=== PATIENT | female | born 1970 | race Caucasian/White ===

== ENCOUNTER 2021-05-10 16:38 | Inpatient (IN) ==
[2021-05-10] MEDS ORDERED: FUROSEMIDE 100 MG/10 ML VIAL IV STA (17:30)
[2021-05-10] MEDS ORDERED: GLUCAGON 1 MG VIAL IM PRN (18:07)
[2021-05-10] MEDS ORDERED: DEXTROSE 50% 25 GM/50 ML VIAL IV PRN (18:07)
[2021-05-10] MEDS ORDERED: ONDANSETRON 4 MG/2 ML VIAL IV PRN (18:07)
[2021-05-10] MEDS ORDERED: cefTRIAXone 2,000 MG in SODIUM CHLORIDE 0.9% 100 ML IV SCH (18:30)
[2021-05-10] MEDS ORDERED: cefTRIAXone 1,000 MG VIAL ONE (19:21)
[2021-05-10 19:24] LABS: Hematocrit 35.1 VOL% (35.7-47.0); Hemoglobin 10.5 GM/DL (12.0-16.0); Immature Granulocytes % 1.9 %; Immature Granulocytes Absolute 0.04 #; Lymphocytes # 0.1 10*3/uL (1.4-4.0); Lymphocytes % 2.8 % (21.3-54.2); Mean Corpuscular HGB Conc 29.9 GM/DL (32-36); Mean Corpuscular Volume 102.3 FL (87-102); Mean Platelet Volume 12.2 FL (9.6-12.0); Monocytes % 4.3 % (1.7-12.7); Red Blood Count 3.43 MC/CUMM (3.8-5.5); Red Cell Distribution Width 21.5 % (9.3-17.3); White Blood Count 2.1 T/CUMM (4-12)
[2021-05-10] MEDS: methylPREDNISolone SOD SUC 40 MG/1 ML VIAL IV SCH (19:29)
[2021-05-10 19:43] LABS: Platelet Count 30 T/CUMM (130-400)
[2021-05-10] MEDS: ALBUTEROL/IPRATROPIUM 3 ML NEB RESP TX SCH ×2 (19:44→23:58)
[2021-05-10 19:47] LABS: Albumin 2.5 G/DL (3.4-5.0); Bilirubin,Total 0.9 MG/DL (0.20-1.00); Calcium 9.1 MG/DL (8.5-10.1); Osmolality,Calculated 293.4 MOS/KG (273-304); Potassium 3.8 MMOL/L (3.5-5.1); Total Protein 5.7 G/DL (6.4-8.2)
[2021-05-10] MEDS ORDERED: APIXABAN 5 MG TABLET PO SCH (21:00)
[2021-05-10 21:01] LABS: Anisocytosis 2+; Band Neutrophils 5 % (0-10); Hypochromasia 1+; Lymphocytes 3 % (20-55); Segmented Neutrophils 89 % (50-85); Total Cells Counted 100
[2021-05-10 21:02] LABS: Ovalocytes 2+; Platelet Estimate Adequate; Tear Drop Cells 1+
[2021-05-10] MEDS: DILTIAZEM INJ 100 MG in SODIUM CHLORIDE 0.9% 100 ML IV SCH (21:54)
[2021-05-10] MEDS ORDERED: SODIUM CHLORIDE 0.9% 250 ML IV ONE (23:31)
[2021-05-11] MEDS: METOPROLOL TARTRATE 25 MG TABLET PO SCH ×3 (00:26→21:08)
[2021-05-11] MEDS: PIPERACILLIN/TAZOBACTAM 3,375 MG in SODIUM CHLORIDE 0.9% 100 ML IV SCH ×3 (00:47→23:18)
[2021-05-11] MEDS ORDERED: VANCOMYCIN INJ 1,000 MG in SODIUM CHLORIDE 0.9% 250 ML IV ONE (00:58)
[2021-05-11] MEDS ORDERED: ACETAMINOPHEN 650 MG SUPP RECTAL ONE (00:59)
[2021-05-11 01:04] LABS: ABG Base Excess 3.5 MMOL/L (-2.5-2.5); ABG HCO3 27.6 MMOL/L (20-26); ABG Oxygen Saturation 96.1 % (95-100); ABG PCO2 36.2 MM HG (35-48); ABG PH 7.481 (7.35-7.45); ABG PO2 78.2 MM HG (80-95); ABG TCO2 24.6 MMOL/L (23-27)
[2021-05-11] MEDS ORDERED: VANCOMYCIN INJ 500 MG in SODIUM CHLORIDE 0.9% 100 ML IV PRN (01:07)
[2021-05-11] MEDS ORDERED: KETOROLAC 30 MG/1 ML VIAL IV ONE (01:12)
[2021-05-11 01:31] LABS: Hematocrit 31.7 VOL% (35.7-47.0); Hemoglobin 9.6 GM/DL (12.0-16.0); Immature Granulocytes % 0.6 %; Immature Granulocytes Absolute 0.01 #; Lymphocytes # 0.1 10*3/uL (1.4-4.0); Lymphocytes % 3.2 % (21.3-54.2); Mean Corpuscular HGB Conc 30.3 GM/DL (32-36); Mean Corpuscular Volume 100.3 FL (87-102); Mean Platelet Volume 12.8 FL (9.6-12.0); Monocytes % 5.8 % (1.7-12.7); Neutrophils % 90.4 % (38.7-73.9); Red Blood Count 3.16 MC/CUMM (3.8-5.5); Red Cell Distribution Width 21.7 % (9.3-17.3); White Blood Count 1.6 T/CUMM (4-12)
[2021-05-11 01:34] LABS: Platelet Count 26 T/CUMM (130-400)
[2021-05-11 01:40] LABS: Albumin 2.2 G/DL (3.4-5.0); Bilirubin,Total 0.8 MG/DL (0.20-1.00); Calcium 9.1 MG/DL (8.5-10.1); Osmolality,Calculated 289.8 MOS/KG (273-304); Potassium 3.8 MMOL/L (3.5-5.1); Total Protein 5.4 G/DL (6.4-8.2)
[2021-05-11] MEDS ORDERED: ACETAMINOPHEN 650 MG SUPP RECTAL PRN ×2 (01:52→03:11)
[2021-05-11] MEDS ORDERED: LACTULOSE 20 GM/30 ML UDCUP PO ONE ×2 (01:52→02:59)
[2021-05-11 01:56] LABS: Ammonia 78 UMOL/L (11-32)
[2021-05-11 02:13] LABS: Band Neutrophils 1 % (0-10); Eosinophils 1 % (0-10); Lymphocytes 2 % (20-55); Platelet Estimate Decreased; Segmented Neutrophils 88 % (50-85); Total Cells Counted 100
[2021-05-11 02:14] LABS: Acanthocytes Few
[2021-05-11] MEDS: ALBUTEROL/IPRATROPIUM 3 ML NEB RESP TX SCH ×5 (03:31→19:35)
[2021-05-11 04:26] LABS: Basophils % 0.4 % (0.0-0.8); Hematocrit 32.3 VOL% (35.7-47.0); Hemoglobin 10.1 GM/DL (12.0-16.0); Immature Granulocytes % 8.9 %; Lymphocytes # 0.1 10*3/uL (1.4-4.0); Lymphocytes % 3.6 % (21.3-54.2); Mean Corpuscular HGB Conc 31.3 GM/DL (32-36); Mean Corpuscular Volume 100.3 FL (87-102); Neutrophils % 79.1 % (38.7-73.9); Red Blood Count 3.22 MC/CUMM (3.8-5.5); Red Cell Distribution Width 21.6 % (9.3-17.3); White Blood Count 2.2 T/CUMM (4-12)
[2021-05-11 04:29] LABS: Platelet Count 23 T/CUMM (130-400)
[2021-05-11 04:50] LABS: Band Neutrophils 10 % (0-10); Hypochromasia 1+; Lymphocytes 3 % (20-55); Segmented Neutrophils 81 % (50-85); Total Cells Counted 100
[2021-05-11 04:51] LABS: Anisocytosis 1+; Microcytosis 1+; Ovalocytes Slight; Platelet Estimate Decreased
[2021-05-11 04:58] LABS: Calcium 8.9 MG/DL (8.5-10.1); Osmolality,Calculated 288.8 MOS/KG (273-304); Potassium 4.1 MMOL/L (3.5-5.1)
[2021-05-11] MEDS: DILTIAZEM INJ 100 MG in SODIUM CHLORIDE 0.9% 100 ML IV SCH (07:19)
[2021-05-11] MEDS: methylPREDNISolone SOD SUC 40 MG/1 ML VIAL IV SCH ×3 (07:19→17:47)
[2021-05-11 07:45] LABS: Hematocrit 31.8 VOL% (35.7-47.0); Hemoglobin 9.6 GM/DL (12.0-16.0); Immature Granulocytes Absolute 0.17 #; Lymphocytes # 0.1 10*3/uL (1.4-4.0); Lymphocytes % 5.7 % (21.3-54.2); Mean Corpuscular HGB Conc 30.2 GM/DL (32-36); Mean Corpuscular Volume 100.6 FL (87-102); Monocytes % 4.5 % (1.7-12.7); Neutrophils % 82.8 % (38.7-73.9); Red Blood Count 3.16 MC/CUMM (3.8-5.5); Red Cell Distribution Width 21.6 % (9.3-17.3); White Blood Count 2.4 T/CUMM (4-12)
[2021-05-11 07:57] LABS: Platelet Count 26 T/CUMM (130-400)
[2021-05-11 08:05] LABS: Band Neutrophils 3 % (0-10); Hypochromasia 1+; Lymphocytes 9 % (20-55); Microcytosis 1+; Ovalocytes Slight; Platelet Estimate Decreased; Segmented Neutrophils 85 % (50-85); Total Cells Counted 100
[2021-05-11 08:06] LABS: Bilirubin,Direct 0.34 MG/DL (0.0-0.20); Bilirubin,Indirect 0.5 MG/DL (0.0-1.0); Bilirubin,Total 0.8 MG/DL (0.20-1.00); Ferritin 953.5 ng/mL (8-252); Total Protein 5.3 G/DL (6.4-8.2)
[2021-05-11 08:52] LABS: Folate 2.48 NG/ML (5.38-24.0); Hepatitis B Core IgM Quant 0.09 Index; Hepatitis B Surface Ag Quant < 0.10 Index; Hepatitis B Surface Ag Result Non-Reactive (NonReactive); Hepatitis C Virus Ab Quant 0.05 Index; Hepatitis C Virus Ab Result Non-Reactive (NonReactive); Vitamin B12 429 PG/ML (211-911)
[2021-05-11 08:56] LABS: Sedimentation Rate-Westergren 22 MM/HR (0-30)
[2021-05-11] MEDS ORDERED: AZITHROMYCIN 250 MG TABLET PO SCH (09:00)
[2021-05-11] MEDS: ASPIRIN EC 81 MG TABLET PO SCH (09:22)
[2021-05-11] MEDS: PANTOPRAZOLE 40 MG TABLET PO SCH (09:23)
[2021-05-11 10:01] LABS: Hemoglobin A1 (Alkaline) 97.6 % (96.5-98.5); Hemoglobin A2 (Alkaline) 2.4 % (1.5-3.5)
[2021-05-11 11:02] LABS: ABG Base Excess 3.2 MMOL/L (-2.5-2.5); ABG HCO3 27.2 MMOL/L (20-26); ABG Oxygen Saturation 95.5 % (95-100); ABG PCO2 44.6 MM HG (35-48); ABG TCO2 25.9 MMOL/L (23-27)
[2021-05-11] MEDS: FOLIC ACID 1 MG TABLET PO SCH ×2 (11:11→21:08)
[2021-05-11 13:48] LABS: Barbiturates Screen,Urine Negative (Negative); Benzodiazepines Screen,Urine Negative (Negative); Cannabinoid Screen,Urine Negative (Negative); Opiate Screen,Urine Positive (Negative); Phencyclidine Screen,Urine Negative (Negative)
[2021-05-11] MEDS: LACTULOSE 20 GM/30 ML UDCUP PO SCH ×2 (15:01→21:08)
[2021-05-11 19:15] LABS: Hemoglobin 9.4 GM/DL (12.0-16.0); Immature Granulocytes % 8.9 %; Immature Granulocytes Absolute 0.17 #; Lymphocytes # 0.2 10*3/uL (1.4-4.0); Lymphocytes % 8.9 % (21.3-54.2); Mean Corpuscular HGB Conc 30.3 GM/DL (32-36); Mean Corpuscular Volume 98.4 FL (87-102); Mean Platelet Volume 12.4 FL (9.6-12.0); Monocytes % 4.7 % (1.7-12.7); Neutrophils % 77.5 % (38.7-73.9); Red Blood Count 3.15 MC/CUMM (3.8-5.5); Red Cell Distribution Width 21.5 % (9.3-17.3); White Blood Count 1.9 T/CUMM (4-12)
[2021-05-11 19:20] LABS: Platelet Count 28 T/CUMM (130-400)
[2021-05-11 19:47] LABS: Band Neutrophils 5 % (0-10); Lymphocytes 19 % (20-55); Macrocytosis Slight; Platelet Estimate Decreased; Segmented Neutrophils 72 % (50-85); Total Cells Counted 100
[2021-05-11 19:48] LABS: Schistocytes Slight
[2021-05-11] MEDS ORDERED: cefTRIAXone 2,000 MG in SODIUM CHLORIDE 0.9% 100 ML IV SCH (20:00)
[2021-05-12] MEDS: ALBUTEROL/IPRATROPIUM 3 ML NEB RESP TX SCH ×7 (00:55→23:22)
[2021-05-12] MEDS ORDERED: SODIUM CHLORIDE 0.9% 250 ML IV ONE (01:19)
[2021-05-12 02:06] LABS: Immature Granulocytes % 11.6 %; Immature Granulocytes Absolute 0.26 #; Lymphocytes # 0.2 10*3/uL (1.4-4.0); Lymphocytes % 9.4 % (21.3-54.2); Mean Corpuscular HGB Conc 31.3 GM/DL (32-36); Mean Corpuscular Volume 98.2 FL (87-102); Monocytes % 4.9 % (1.7-12.7); Neutrophils % 74.1 % (38.7-73.9); Red Blood Count 3.26 MC/CUMM (3.8-5.5); Red Cell Distribution Width 21.4 % (9.3-17.3); White Blood Count 2.2 T/CUMM (4-12)
[2021-05-12 02:14] LABS: Platelet Count 33 T/CUMM (130-400)
[2021-05-12] MEDS: methylPREDNISolone SOD SUC 40 MG/1 ML VIAL IV SCH ×3 (02:20→18:17)
[2021-05-12 02:21] LABS: Calcium 8.9 MG/DL (8.5-10.1)
[2021-05-12 02:43] LABS: Band Neutrophils 4 % (0-10); Lymphocytes 7 % (20-55); Platelet Estimate Decreased; Segmented Neutrophils 83 % (50-85)
[2021-05-12 02:44] LABS: Hypochromasia Slight; Total Cells Counted 100
[2021-05-12 09:45] LABS: HIV Antigen/Antibody Result Nonreactive (Nonreactive)
[2021-05-12 10:08] LABS: Total Protein 5.7 G/DL (6.4-8.2)
[2021-05-12] MEDS: METOPROLOL TARTRATE 25 MG TABLET PO SCH ×2 (11:15→20:35)
[2021-05-12] MEDS: ASPIRIN EC 81 MG TABLET PO SCH (11:15)
[2021-05-12] MEDS: LACTULOSE 20 GM/30 ML UDCUP PO SCH ×2 (11:15→20:36)
[2021-05-12] MEDS: PANTOPRAZOLE 40 MG TABLET PO SCH (11:15)
[2021-05-12] MEDS: FOLIC ACID 1 MG TABLET PO SCH ×2 (11:15→20:35)
[2021-05-12] MEDS: MIDODRINE 5 MG TABLET PO SCH ×2 (18:17→20:35)
[2021-05-12] MEDS: PIPERACILLIN/TAZOBACTAM 3,375 MG in SODIUM CHLORIDE 0.9% 100 ML IV SCH (18:17)
[2021-05-12] MEDS ORDERED: cefTRIAXone 1,000 MG VIAL IM ONE (23:57)
[2021-05-12] MEDS ORDERED: CLINDAMYCIN 600 MG/4 ML VIAL IM ONE (23:57)
[2021-05-13] MEDS ORDERED: methylPREDNISolone SOD SUC 40 MG/1 ML VIAL IM ONE (00:16)
[2021-05-13] MEDS: methylPREDNISolone SOD SUC 40 MG/1 ML VIAL IV SCH ×2 (01:34→10:17)
[2021-05-13] MEDS: ALBUTEROL/IPRATROPIUM 3 ML NEB RESP TX SCH ×5 (03:02→20:20)
[2021-05-13] MEDS: PIPERACILLIN/TAZOBACTAM 3,375 MG in SODIUM CHLORIDE 0.9% 100 ML IV SCH (04:06)
[2021-05-13 06:56] LABS: Hemoglobin 9.7 GM/DL (12.0-16.0); Immature Granulocytes % 0.5 %; Immature Granulocytes Absolute 0.01 #; Lymphocytes # 0.2 10*3/uL (1.4-4.0); Lymphocytes % 10.3 % (21.3-54.2); Mean Corpuscular HGB Conc 31.3 GM/DL (32-36); Mean Corpuscular Volume 97.5 FL (87-102); Monocytes % 4.4 % (1.7-12.7); Neutrophils % 84.8 % (38.7-73.9); Red Blood Count 3.18 MC/CUMM (3.8-5.5); Red Cell Distribution Width 21.2 % (9.3-17.3)
[2021-05-13 07:09] LABS: Calcium 10.2 MG/DL (8.5-10.1); Osmolality,Calculated 298.5 MOS/KG (273-304); Potassium 4.6 MMOL/L (3.5-5.1)
[2021-05-13 07:18] LABS: Total Protein (Chem) 5.7 G/DL (6.4-8.3)
[2021-05-13 07:31] LABS: Platelet Count 33 T/CUMM (130-400)
[2021-05-13 07:46] LABS: Anisocytosis 1+; Band Neutrophils 6 % (0-10); Burr Cells 1+; Lymphocytes 9 % (20-55); Macrocytosis 1+; Nucleated Red Blood Cells 2 (0-5); Ovalocytes Few; Platelet Estimate Decreased; Segmented Neutrophils 82 % (50-85); Tear Drop Cells Few; Total Cells Counted 100
[2021-05-13 07:47] LABS: Target Cells Few
[2021-05-13] MEDS: METOPROLOL TARTRATE 25 MG TABLET PO SCH ×2 (08:42→20:23)
[2021-05-13 09:14] LABS: Immuno Free Light Chain Kappa 9.36 MG/DL (0.33-1.94); Immuno Free Light Chain Lambda 10.57 MG/DL (0.57-2.63); Immuno Free Light Chain Ratio 0.89 MG/DL (0.26-1.65)
[2021-05-13 09:23] LABS: Albumin (SPE) 3.2 G/DL (3.2-5.3); Albumin (SPE) Rel % 56.5 %; Alpha 1 (SPE) 0.3 G/DL (0.1-0.4); Alpha 1 (SPE) Rel % 5.4 %; Alpha 2 (SPE) 0.5 G/DL (0.4-1.0); Alpha 2 (SPE) Rel % 8.3 %; Beta (SPE) 0.3 G/DL (0.5-1.1); Gamma (SPE) 1.4 G/DL (0.7-1.7); Gamma (SPE) Rel % 23.8 %
[2021-05-13] MEDS: MIDODRINE 5 MG TABLET PO SCH ×3 (10:16→20:23)
[2021-05-13] MEDS: ASPIRIN EC 81 MG TABLET PO SCH (10:16)
[2021-05-13] MEDS: PANTOPRAZOLE 40 MG TABLET PO SCH (10:16)
[2021-05-13] MEDS: LACTULOSE 20 GM/30 ML UDCUP PO SCH ×2 (10:16→20:23)
[2021-05-13] MEDS: FOLIC ACID 1 MG TABLET PO SCH ×2 (10:16→20:23)
[2021-05-13 13:30] LABS: ABG Base Excess 1.3 MMOL/L (-2.5-2.5); ABG HCO3 24.9 MMOL/L (20-26); ABG Oxygen Saturation 54.1 % (95-100); ABG PCO2 55.5 MM HG (35-48); ABG PH 7.315 (7.35-7.45); ABG TCO2 26.4 MMOL/L (23-27)
[2021-05-13 13:36] LABS: ABG PO2 36.9 MM HG (80-95)
[2021-05-13] MEDS: cefTRIAXone 1,000 MG VIAL IM SCH (14:17)
[2021-05-13] MEDS: predniSONE 20 MG TABLET PO SCH (14:17)
[2021-05-13 15:46] LABS: ABG HCO3 25.2 MMOL/L (20-26); ABG Oxygen Saturation 91.5 % (95-100); ABG PCO2 41.8 MM HG (35-48); ABG PH 7.399 (7.35-7.45); ABG PO2 67.4 MM HG (80-95); ABG TCO2 23.8 MMOL/L (23-27)
[2021-05-14] MEDS: ALBUTEROL/IPRATROPIUM 3 ML NEB RESP TX SCH ×7 (00:30→23:15)
[2021-05-14] MEDS: METOPROLOL TARTRATE 25 MG TABLET PO SCH ×2 (08:47→20:36)
[2021-05-14] MEDS: MIDODRINE 5 MG TABLET PO SCH ×3 (08:47→20:36)
[2021-05-14] MEDS: FOLIC ACID 1 MG TABLET PO SCH ×2 (08:47→20:36)
[2021-05-14] MEDS: LACTULOSE 20 GM/30 ML UDCUP PO SCH ×3 (08:47→20:54)
[2021-05-14 09:16] LABS: ABG Base Excess 0.6 MMOL/L (-2.5-2.5); ABG Oxygen Saturation 96.8 % (95-100); ABG PCO2 41.1 MM HG (35-48); ABG PH 7.399 (7.35-7.45); ABG TCO2 23.3 MMOL/L (23-27)
[2021-05-14 11:45] LABS: Calcium 9.9 MG/DL (8.5-10.1); Osmolality,Calculated 298.1 MOS/KG (273-304); Potassium 5.4 MMOL/L (3.5-5.1)
[2021-05-14 12:43] LABS: Hematocrit 30.9 VOL% (35.7-47.0); Hemoglobin 9.7 GM/DL (12.0-16.0); Immature Granulocytes % 0.4 %; Immature Granulocytes Absolute 0.01 #; Lymphocytes # 0.4 10*3/uL (1.4-4.0); Lymphocytes % 14.4 % (21.3-54.2); Mean Corpuscular HGB Conc 31.4 GM/DL (32-36); Mean Corpuscular Volume 94.8 FL (87-102); Monocytes % 4.4 % (1.7-12.7); Neutrophils % 80.8 % (38.7-73.9); Red Blood Count 3.26 MC/CUMM (3.8-5.5); Red Cell Distribution Width 21.1 % (9.3-17.3); White Blood Count 2.7 T/CUMM (4-12)
[2021-05-14 12:45] LABS: Platelet Count 34 T/CUMM (130-400)
[2021-05-14] MEDS: PANTOPRAZOLE 40 MG TABLET PO SCH (14:04)
[2021-05-14] MEDS: ASPIRIN EC 81 MG TABLET PO SCH (14:04)
[2021-05-14] MEDS: predniSONE 20 MG TABLET PO SCH (14:31)
[2021-05-14] MEDS: cefTRIAXone 1,000 MG VIAL IM SCH (14:44)
[2021-05-15] MEDS: ACETAMINOPHEN 325 MG TABLET PO PRN (01:15)
[2021-05-15] MEDS: ALBUTEROL/IPRATROPIUM 3 ML NEB RESP TX SCH ×6 (04:20→23:58)
[2021-05-15 04:32] LABS: Hematocrit 30.8 VOL% (35.7-47.0); Hemoglobin 9.7 GM/DL (12.0-16.0); Immature Granulocytes Absolute 0.04 #; Lymphocytes # 0.4 10*3/uL (1.4-4.0); Lymphocytes % 10.5 % (21.3-54.2); Mean Corpuscular HGB Conc 31.5 GM/DL (32-36); Mean Corpuscular Volume 96.6 FL (87-102); Monocytes % 5.9 % (1.7-12.7); NRBC # 0.02 10*3/uL; Neutrophils % 82.6 % (38.7-73.9); Red Blood Count 3.19 MC/CUMM (3.8-5.5); Red Cell Distribution Width 21.2 % (9.3-17.3); White Blood Count 4.1 T/CUMM (4-12)
[2021-05-15 04:57] LABS: Albumin 1.7 G/DL (3.4-5.0); Bilirubin,Total 0.9 MG/DL (0.20-1.00); Calcium 9.5 MG/DL (8.5-10.1); Osmolality,Calculated 287.8 MOS/KG (273-304); Potassium 4.9 MMOL/L (3.5-5.1); Total Protein 5.1 G/DL (6.4-8.2)
[2021-05-15 04:57] LABS: Platelet Count 41 T/CUMM (130-400)
[2021-05-15 05:08] LABS: Hypochromasia Slight; Ovalocytes Slight
[2021-05-15 05:09] LABS: Platelet Estimate Decreased
[2021-05-15] MEDS: METOPROLOL TARTRATE 25 MG TABLET PO SCH ×2 (10:05→20:27)
[2021-05-15] MEDS: ASPIRIN EC 81 MG TABLET PO SCH (10:05)
[2021-05-15] MEDS: MIDODRINE 5 MG TABLET PO SCH ×3 (10:06→20:27)
[2021-05-15] MEDS: LACTULOSE 20 GM/30 ML UDCUP PO SCH ×2 (10:06→20:27)
[2021-05-15] MEDS: PANTOPRAZOLE 40 MG TABLET PO SCH (10:06)
[2021-05-15] MEDS: FOLIC ACID 1 MG TABLET PO SCH ×2 (10:06→20:27)
[2021-05-15] MEDS: predniSONE 20 MG TABLET PO SCH (10:06)
[2021-05-15] MEDS: cefTRIAXone 1,000 MG VIAL IM SCH (11:44)
[2021-05-15] MEDS: SUCRALFATE 1 GM TABLET PO SCH ×2 (16:05→20:27)
[2021-05-15] MEDS: CEFUROXIME 500 MG TABLET PO SCH (20:27)
[2021-05-16] MEDS: ALBUTEROL/IPRATROPIUM 3 ML NEB RESP TX SCH ×5 (02:00→19:54)
[2021-05-16] MEDS: CEFUROXIME 500 MG TABLET PO SCH ×3 (10:08→20:59)
[2021-05-16] MEDS: SUCRALFATE 1 GM TABLET PO SCH ×4 (10:08→20:59)
[2021-05-16] MEDS: ASPIRIN EC 81 MG TABLET PO SCH ×2 (10:08→13:06)
[2021-05-16] MEDS: LACTULOSE 20 GM/30 ML UDCUP PO SCH ×3 (10:08→21:00)
[2021-05-16] MEDS: predniSONE 20 MG TABLET PO SCH ×2 (10:09→13:06)
[2021-05-16] MEDS: FOLIC ACID 1 MG TABLET PO SCH ×3 (10:09→20:59)
[2021-05-16] MEDS: METOPROLOL TARTRATE 25 MG TABLET PO SCH ×3 (10:09→20:59)
[2021-05-16] MEDS: MIDODRINE 5 MG TABLET PO SCH ×3 (10:09→20:59)
[2021-05-17] MEDS: ALBUTEROL/IPRATROPIUM 3 ML NEB RESP TX SCH ×7 (00:01→23:45)
[2021-05-17] MEDS ORDERED: AMIODARONE INJ 150 MG in DEXTROSE 5% 100 ML IV ONE (08:36)
[2021-05-17] MEDS ORDERED: AMIODARONE INJ 450 MG in DEXTROSE 5% 241 ML IV SCH (09:00)
[2021-05-17] MEDS: ASPIRIN EC 81 MG TABLET PO SCH (09:04)
[2021-05-17] MEDS: MIDODRINE 5 MG TABLET PO SCH ×3 (09:04→21:15)
[2021-05-17] MEDS: predniSONE 20 MG TABLET PO SCH (09:04)
[2021-05-17] MEDS: LACTULOSE 20 GM/30 ML UDCUP PO SCH ×2 (09:05→21:16)
[2021-05-17] MEDS: FOLIC ACID 1 MG TABLET PO SCH ×2 (09:05→21:16)
[2021-05-17] MEDS: SUCRALFATE 1 GM TABLET PO SCH ×4 (09:05→21:16)
[2021-05-17] MEDS: ASCORBIC ACID 500 MG TABLET PO SCH ×2 (09:10→21:16)
[2021-05-17] MEDS ORDERED: AMIODARONE 150 MG/3 ML VIAL IV ONE (09:30)
[2021-05-17 09:33] LABS: Eosinophils % 0.2 % (0.00-10.9); Hematocrit 35.9 VOL% (35.7-47.0); Hemoglobin 11.1 GM/DL (12.0-16.0); Immature Granulocytes % 0.8 %; Immature Granulocytes Absolute 0.05 #; Lymphocytes # 0.7 10*3/uL (1.4-4.0); Lymphocytes % 10.7 % (21.3-54.2); Mean Corpuscular HGB Conc 30.9 GM/DL (32-36); Mean Corpuscular Volume 98.4 FL (87-102); Monocytes % 7.6 % (1.7-12.7); Neutrophils % 80.7 % (38.7-73.9); Platelet Count 48 T/CUMM (130-400); Red Blood Count 3.65 MC/CUMM (3.8-5.5); Red Cell Distribution Width 21.9 % (9.3-17.3); White Blood Count 6.6 T/CUMM (4-12)
[2021-05-17 09:52] LABS: Osmolality,Calculated 280.1 MOS/KG (273-304)
[2021-05-17 10:23] LABS: Calcium 9.5 MG/DL (8.5-10.1)
[2021-05-17 10:24] LABS: Potassium 4.9 MMOL/L (3.5-5.1)
[2021-05-17] MEDS: AMIODARONE INJ 450 MG in DEXTROSE 5% 241 ML IV SCH (17:11)
[2021-05-18] MEDS: ALBUTEROL/IPRATROPIUM 3 ML NEB RESP TX SCH ×6 (03:50→22:51)
[2021-05-18 07:57] LABS: Basophils % 0.3 % (0.0-0.8); Eosinophils % 0.3 % (0.00-10.9); Hematocrit 40.3 VOL% (35.7-47.0); Hemoglobin 12.3 GM/DL (12.0-16.0); Immature Granulocytes % 1.2 %; Immature Granulocytes Absolute 0.08 #; Lymphocytes # 0.7 10*3/uL (1.4-4.0); Lymphocytes % 10.8 % (21.3-54.2); Mean Corpuscular HGB Conc 30.5 GM/DL (32-36); Mean Corpuscular Volume 101.3 FL (87-102); Monocytes % 6.7 % (1.7-12.7); Neutrophils % 80.7 % (38.7-73.9); Platelet Count 54 T/CUMM (130-400); Red Blood Count 3.98 MC/CUMM (3.8-5.5); Red Cell Distribution Width 22.2 % (9.3-17.3); White Blood Count 6.7 T/CUMM (4-12)
[2021-05-18 08:13] LABS: Calcium 9.7 MG/DL (8.5-10.1); Osmolality,Calculated 279.2 MOS/KG (273-304); Potassium 5.6 MMOL/L (3.5-5.1)
[2021-05-18 09:11] LABS: Hypochromasia Slight; Macrocytosis 1+; Ovalocytes Slight
[2021-05-18 09:12] LABS: Platelet Estimate Decreased; Polychromasia Slight
[2021-05-18] MEDS ORDERED: SODIUM POLYSTYRENE SULFATE 15 GM/60 ML BOTTLE PO ONE (09:12)
[2021-05-18] MEDS: ASPIRIN EC 81 MG TABLET PO SCH (09:40)
[2021-05-18] MEDS: SUCRALFATE 1 GM TABLET PO SCH ×4 (09:40→20:32)
[2021-05-18] MEDS: ASCORBIC ACID 500 MG TABLET PO SCH ×2 (09:40→20:32)
[2021-05-18] MEDS: FOLIC ACID 1 MG TABLET PO SCH ×2 (09:40→20:32)
[2021-05-18] MEDS: MIDODRINE 5 MG TABLET PO SCH ×3 (09:40→20:32)
[2021-05-18] MEDS: LACTULOSE 20 GM/30 ML UDCUP PO SCH ×2 (09:41→20:32)
[2021-05-18] MEDS: predniSONE 20 MG TABLET PO SCH (09:41)
[2021-05-18] MEDS: AMIODARONE 200 MG TABLET PO SCH ×2 (09:48→20:32)
[2021-05-18] MEDS: AMIODARONE INJ 450 MG in DEXTROSE 5% 241 ML IV SCH ×2 (10:03→20:33)
[2021-05-18] MEDS ORDERED: VANCOMYCIN INJ 1,000 MG in SODIUM CHLORIDE 0.9% 250 ML IV PRN (16:35)
[2021-05-18] MEDS ORDERED: VANCOMYCIN INJ 500 MG in SODIUM CHLORIDE 0.9% 250 ML IV PRN (17:48)
[2021-05-18] MEDS ORDERED: VANCOMYCIN INJ 1,750 MG in SODIUM CHLORIDE 0.9% 500 ML IV ONE (20:00)
[2021-05-19] MEDS: ALBUTEROL/IPRATROPIUM 3 ML NEB RESP TX SCH ×5 (03:16→20:00)
[2021-05-19 07:19] LABS: Basophils % 0.2 % (0.0-0.8); Hematocrit 35.6 VOL% (35.7-47.0); Hemoglobin 10.9 GM/DL (12.0-16.0); Immature Granulocytes % 0.6 %; Immature Granulocytes Absolute 0.04 #; Lymphocytes # 0.4 10*3/uL (1.4-4.0); Lymphocytes % 6.4 % (21.3-54.2); Mean Corpuscular HGB Conc 30.6 GM/DL (32-36); Mean Platelet Volume 13.8 FL (9.6-12.0); Monocytes % 3.8 % (1.7-12.7); Platelet Count 56 T/CUMM (130-400); Red Blood Count 3.49 MC/CUMM (3.8-5.5); Red Cell Distribution Width 22.5 % (9.3-17.3); White Blood Count 6.3 T/CUMM (4-12)
[2021-05-19 07:32] LABS: Calcium 9.7 MG/DL (8.5-10.1); Osmolality,Calculated 278.1 MOS/KG (273-304); Potassium 4.6 MMOL/L (3.5-5.1)
[2021-05-19 07:49] LABS: Hypochromasia 1+; Microcytosis 1+
[2021-05-19 07:50] LABS: Ovalocytes Slight; Platelet Estimate Decreased; Polychromasia Slight; Tear Drop Cells Slight
[2021-05-19] MEDS: ASCORBIC ACID 500 MG TABLET PO SCH ×2 (08:46→20:35)
[2021-05-19] MEDS: FOLIC ACID 1 MG TABLET PO SCH ×2 (08:46→20:34)
[2021-05-19] MEDS: predniSONE 20 MG TABLET PO SCH (08:46)
[2021-05-19] MEDS: AMIODARONE 200 MG TABLET PO SCH ×2 (08:46→20:35)
[2021-05-19] MEDS: LACTULOSE 20 GM/30 ML UDCUP PO SCH ×2 (08:46→20:35)
[2021-05-19] MEDS: SUCRALFATE 1 GM TABLET PO SCH ×4 (08:46→20:34)
[2021-05-19] MEDS: MIDODRINE 5 MG TABLET PO SCH ×3 (08:46→20:34)
[2021-05-19] MEDS: ASPIRIN EC 81 MG TABLET PO SCH (08:46)
[2021-05-19] MEDS: AMIODARONE INJ 450 MG in DEXTROSE 5% 241 ML IV SCH (11:09)
[2021-05-20] MEDS: ALBUTEROL/IPRATROPIUM 3 ML NEB RESP TX SCH ×6 (00:32→19:30)
[2021-05-20] MEDS: AMIODARONE INJ 450 MG in DEXTROSE 5% 241 ML IV SCH ×2 (02:18→19:22)
[2021-05-20 07:15] LABS: Basophils % 0.1 % (0.0-0.8); Eosinophils % 0.1 % (0.00-10.9); Hemoglobin 10.9 GM/DL (12.0-16.0); Lymphocytes # 0.5 10*3/uL (1.4-4.0); Lymphocytes % 5.1 % (21.3-54.2); Mean Corpuscular HGB Conc 30.3 GM/DL (32-36); Mean Platelet Volume 12.6 FL (9.6-12.0); Monocytes % 6.8 % (1.7-12.7); Neutrophils % 86.9 % (38.7-73.9); Platelet Count 68 T/CUMM (130-400); Red Blood Count 3.53 MC/CUMM (3.8-5.5); Red Cell Distribution Width 22.5 % (9.3-17.3); White Blood Count 10.5 T/CUMM (4-12)
[2021-05-20 07:30] LABS: Calcium 9.7 MG/DL (8.5-10.1); Osmolality,Calculated 281.1 MOS/KG (273-304)
[2021-05-20 07:32] LABS: Hypochromasia 1+; Ovalocytes Few
[2021-05-20 07:33] LABS: Macrocytosis 1+; Platelet Estimate Decreased
[2021-05-20] MEDS: ASCORBIC ACID 500 MG TABLET PO SCH ×2 (09:01→21:34)
[2021-05-20] MEDS: FOLIC ACID 1 MG TABLET PO SCH ×2 (09:01→21:34)
[2021-05-20] MEDS: SUCRALFATE 1 GM TABLET PO SCH ×4 (09:01→21:35)
[2021-05-20] MEDS: MIDODRINE 5 MG TABLET PO SCH ×3 (09:01→21:34)
[2021-05-20] MEDS: AMIODARONE 200 MG TABLET PO SCH ×2 (09:01→21:34)
[2021-05-20] MEDS: ASPIRIN EC 81 MG TABLET PO SCH (09:02)
[2021-05-20] MEDS: predniSONE 20 MG TABLET PO SCH (09:02)
[2021-05-20] MEDS: LACTULOSE 20 GM/30 ML UDCUP PO SCH ×3 (09:02→21:35)
[2021-05-20] MEDS: LEVOFLOXACIN 500 MG TABLET PO SCH (11:40)
[2021-05-20] MEDS: guaiFENesin 200 MG/10 ML UDCUP PO PRN ×2 (14:46→23:35)
[2021-05-20] MEDS ORDERED: ZINC OXIDE PASTE 113 GM TUBE TOP PRN (15:05)
[2021-05-21] MEDS: ALBUTEROL/IPRATROPIUM 3 ML NEB RESP TX SCH ×6 (03:57→20:27)
[2021-05-21 06:16] LABS: Eosinophils % 0.2 % (0.00-10.9); Hematocrit 33.7 VOL% (35.7-47.0); Hemoglobin 10.2 GM/DL (12.0-16.0); Immature Granulocytes % 1.2 %; Immature Granulocytes Absolute 0.11 #; Lymphocytes # 0.6 10*3/uL (1.4-4.0); Lymphocytes % 6.5 % (21.3-54.2); Mean Corpuscular HGB Conc 30.3 GM/DL (32-36); Mean Corpuscular Volume 102.4 FL (87-102); Mean Platelet Volume 12.1 FL (9.6-12.0); Monocytes % 8.7 % (1.7-12.7); Neutrophils % 83.4 % (38.7-73.9); Platelet Count 53 T/CUMM (130-400); Red Blood Count 3.29 MC/CUMM (3.8-5.5); Red Cell Distribution Width 22.9 % (9.3-17.3); White Blood Count 8.9 T/CUMM (4-12)
[2021-05-21 06:36] LABS: Calcium 9.1 MG/DL (8.5-10.1); Osmolality,Calculated 279.8 MOS/KG (273-304); Potassium 4.7 MMOL/L (3.5-5.1)
[2021-05-21 06:41] LABS: Atypical Lymphocytes Few; Platelet Estimate Decreased
[2021-05-21] MEDS: ASPIRIN EC 81 MG TABLET PO SCH (08:07)
[2021-05-21] MEDS: predniSONE 20 MG TABLET PO SCH (08:07)
[2021-05-21] MEDS: LACTULOSE 20 GM/30 ML UDCUP PO SCH ×2 (08:07→21:19)
[2021-05-21] MEDS: SUCRALFATE 1 GM TABLET PO SCH ×4 (08:07→21:19)
[2021-05-21] MEDS: ASCORBIC ACID 500 MG TABLET PO SCH ×2 (08:08→21:19)
[2021-05-21] MEDS: AMIODARONE 200 MG TABLET PO SCH ×2 (08:08→21:20)
[2021-05-21] MEDS: MIDODRINE 5 MG TABLET PO SCH ×3 (08:08→21:19)
[2021-05-21] MEDS: FOLIC ACID 1 MG TABLET PO SCH ×2 (10:23→21:19)
[2021-05-21] MEDS: AMIODARONE INJ 450 MG in DEXTROSE 5% 241 ML IV SCH (11:11)
[2021-05-21] MEDS: ACETAMINOPHEN 325 MG TABLET PO PRN (13:53)
[2021-05-22 06:03] LABS: Basophils % 0.1 % (0.0-0.8); Eosinophils % 0.1 % (0.00-10.9); Hematocrit 34.3 VOL% (35.7-47.0); Hemoglobin 10.2 GM/DL (12.0-16.0); Immature Granulocytes % 0.7 %; Immature Granulocytes Absolute 0.06 #; Lymphocytes # 0.4 10*3/uL (1.4-4.0); Lymphocytes % 4.9 % (21.3-54.2); Mean Corpuscular HGB Conc 29.7 GM/DL (32-36); Mean Corpuscular Volume 104.6 FL (87-102); Mean Platelet Volume 12.5 FL (9.6-12.0); Monocytes % 7.3 % (1.7-12.7); Neutrophils % 86.9 % (38.7-73.9); Platelet Count 52 T/CUMM (130-400); Red Blood Count 3.28 MC/CUMM (3.8-5.5); Red Cell Distribution Width 22.4 % (9.3-17.3); White Blood Count 8.9 T/CUMM (4-12)
[2021-05-22 06:25] LABS: Calcium 9.4 MG/DL (8.5-10.1); Potassium 4.9 MMOL/L (3.5-5.1)
[2021-05-22] MEDS: ALBUTEROL/IPRATROPIUM 3 ML NEB RESP TX SCH ×4 (06:35→11:08)
[2021-05-22] MEDS: LACTULOSE 20 GM/30 ML UDCUP PO SCH (09:36)
[2021-05-22] MEDS: LEVOFLOXACIN 500 MG TABLET PO SCH (09:36)
[2021-05-22] MEDS: SUCRALFATE 1 GM TABLET PO SCH (09:37)
[2021-05-22] MEDS: ASPIRIN EC 81 MG TABLET PO SCH (09:37)
[2021-05-22] MEDS: FOLIC ACID 1 MG TABLET PO SCH (09:37)
[2021-05-22] MEDS: predniSONE 20 MG TABLET PO SCH (09:37)
[2021-05-22] MEDS: ASCORBIC ACID 500 MG TABLET PO SCH (09:37)
[2021-05-22] MEDS: MIDODRINE 5 MG TABLET PO SCH (09:37)
[2021-05-22] MEDS: AMIODARONE 200 MG TABLET PO SCH (10:57)
[2021-05-22 11:46] VITALS: BP 86/56
== END 2021-05-22 11:34 | DRG 720 ==
LOC: EDBD → EDUNIT# → N.ED 16:38 → SUATTDRO 18:07 → N.EDINP 18:07 → N.TELES 20:06
PROVIDERS: ADMIT Internal Medicine; ATTEND Emergency Medicine

== ENCOUNTER 2021-05-30 16:16 | Inpatient (IN) ==
[2021-05-30] MEDS ORDERED: INSULIN REGULAR 100 UNIT/ML IV STA (17:09)
[2021-05-30] MEDS ORDERED: DEXTROSE 50% 25 GM/50 ML VIAL IV STA (17:09)
[2021-05-30] MEDS ORDERED: DEXTROSE 50% 25 GM/50 ML SYRINGE IV STA (17:11)
[2021-05-30] MEDS ORDERED: GLUCAGON 1 MG VIAL IM PRN (17:43)
[2021-05-30] MEDS ORDERED: DEXTROSE 50% 25 GM/50 ML VIAL IV PRN (17:43)
[2021-05-30] MEDS ORDERED: SODIUM CHLORIDE 0.9% 1,000 ML IV PRN (17:48)
[2021-05-30] MEDS ORDERED: DEXTROSE 50% 25 GM/50 ML SYRINGE IV PRN (17:52)
[2021-05-30] MEDS ORDERED: TISSUE ADHESIVE 1 EACH APPLICATOR TOP ONE (17:59)
[2021-05-30] MEDS ORDERED: BUPIVACAINE MPF 0.25% 30 ML VIAL ONE (17:59)
[2021-05-30] MEDS ORDERED: LIDOCAINE 1%/EPI INJ 20 ML VIAL ONE (17:59)
[2021-05-30] MEDS ORDERED: HEPARIN 5,000 UNIT/1 ML VIAL ONE (17:59)
[2021-05-30] MEDS ORDERED: MIDAZOLAM 2 MG/2 ML VIAL ONE (18:09)
[2021-05-30] MEDS ORDERED: ceFAZolin 1,000 MG VIAL ONE (18:10)
[2021-05-30] MEDS ORDERED: KETAMINE 500 MG/10 ML VIAL ONE (18:10)
[2021-05-30] MEDS ORDERED: SODIUM CHLORIDE 0.9% 250 ML IV ONE (18:11)
[2021-05-30 20:26] LABS: INR 1.2; PT Patient Result 13.3 SECS (10.5-12.0); Partial Thromboplastin Time 35.3 SECS (23.8-32.1)
[2021-05-30] MEDS ORDERED: INFLUENZA VIRUS VACCINE 0.5 ML SYRINGE IM ONE (23:57)
[2021-05-31] MEDS ORDERED: ONDANSETRON 4 MG TABLET PO PRN (00:49)
[2021-05-31 01:38] LABS: Basophils % 0.1 % (0.0-0.8); Eosinophils % 0.4 % (0.00-10.9); Hematocrit 24.6 VOL% (35.7-47.0); Hemoglobin 7.9 GM/DL (12.0-16.0); Immature Granulocytes % 0.7 %; Immature Granulocytes Absolute 0.05 #; Lymphocytes # 0.8 10*3/uL (1.4-4.0); Lymphocytes % 11.8 % (21.3-54.2); Mean Corpuscular HGB Conc 32.1 GM/DL (32-36); Mean Corpuscular Volume 93.9 FL (87-102); Mean Platelet Volume 11.6 FL (9.6-12.0); Monocytes % 11.7 % (1.7-12.7); NRBC # 0.02 10*3/uL; Neutrophils % 75.3 % (38.7-73.9); Red Blood Count 2.62 MC/CUMM (3.8-5.5); Red Cell Distribution Width 19.6 % (9.3-17.3); White Blood Count 6.9 T/CUMM (4-12)
[2021-05-31 01:42] LABS: Platelet Count 39 T/CUMM (130-400)
[2021-05-31 01:59] LABS: Albumin 2.4 G/DL (3.4-5.0); Bilirubin,Total 1.2 MG/DL (0.20-1.00); Calcium 9.1 MG/DL (8.5-10.1); Osmolality,Calculated 288.5 MOS/KG (273-304); Potassium 4.5 MMOL/L (3.5-5.1); Total Protein 4.4 G/DL (6.4-8.2)
[2021-05-31] MEDS ORDERED: LACTULOSE 320 GM/480 ML BOTTLE RECTAL ONE (02:06)
[2021-05-31] MEDS ORDERED: LACTULOSE 20 GM/30 ML UDCUP PO ONE (02:57)
[2021-05-31] MEDS: ALBUTEROL/IPRATROPIUM 3 ML NEB RESP TX SCH ×3 (07:25→19:00)
[2021-05-31] MEDS ORDERED: predniSONE 10 MG TABLET PO SCH (09:00)
[2021-05-31] MEDS ORDERED: LACTULOSE 20 GM/30 ML UDCUP PO SCH (09:00)
[2021-05-31] MEDS ORDERED: ALBUMIN 25% 25 GM/100 ML VIAL IV ONE (09:24)
[2021-05-31] MEDS: FOLIC ACID 1 MG TABLET PO SCH ×2 (09:58→20:13)
[2021-05-31] MEDS: ASCORBIC ACID 500 MG TABLET PO SCH ×2 (09:58→20:13)
[2021-05-31] MEDS: AMIODARONE 200 MG TABLET PO SCH ×2 (09:58→20:11)
[2021-05-31] MEDS: MIDODRINE 5 MG TABLET PO SCH ×3 (09:58→20:12)
[2021-05-31] MEDS: SEVELAMER CARBONATE 800 MG TABLET PO SCH ×3 (09:58→18:51)
[2021-05-31] MEDS: MONTELUKAST 10 MG TABLET PO SCH (09:59)
[2021-05-31] MEDS: CETIRIZINE 10 MG TABLET PO SCH (09:59)
[2021-05-31] MEDS: HYDROCORTISONE 100 MG VIAL IV SCH ×2 (10:01→18:51)
[2021-05-31] MEDS: LACTULOSE 20 GM/30 ML UDCUP PO SCH ×2 (15:30→20:11)
[2021-05-31 16:09] LABS: ABG Base Excess -2.6 MMOL/L (-2.5-2.5); ABG Oxygen Saturation 97.1 % (95-100); ABG PCO2 36.9 MM HG (35-48); ABG PH 7.393 (7.35-7.45); ABG PO2 104.9 MM HG (80-95); ABG TCO2 23.1 MMOL/L (23-27); Allen Test Positive
[2021-05-31] MEDS: ZINC OXIDE 16% PASTE 57 GM TUBE TOP SCH ×2 (18:11→20:12)
[2021-05-31 20:52] LABS: INR 1.2; PT Patient Result 13.2 SECS (10.5-12.0); Partial Thromboplastin Time 43.7 SECS (23.8-32.1)
[2021-06-01] MEDS: HYDROCORTISONE 100 MG VIAL IV SCH ×3 (02:11→20:20)
[2021-06-01] MEDS: HEPARIN 10,000 UNIT/10 ML VIAL IV SCH ×2 (02:11→13:10)
[2021-06-01 06:12] LABS: Hemoglobin 7.6 GM/DL (12.0-16.0); Immature Granulocytes % 0.4 %; Immature Granulocytes Absolute 0.02 #; Lymphocytes # 0.4 10*3/uL (1.4-4.0); Lymphocytes % 8.3 % (21.3-54.2); Mean Corpuscular HGB Conc 31.7 GM/DL (32-36); Mean Corpuscular Volume 96.8 FL (87-102); Mean Platelet Volume 12.7 FL (9.6-12.0); Monocytes % 4.6 % (1.7-12.7); NRBC # 0.02 10*3/uL; Neutrophils % 86.7 % (38.7-73.9); Red Blood Count 2.48 MC/CUMM (3.8-5.5); Red Cell Distribution Width 19.9 % (9.3-17.3)
[2021-06-01 06:16] LABS: Platelet Count 35 T/CUMM (130-400); White Blood Count 4.8 T/CUMM (4-12)
[2021-06-01 06:20] LABS: INR 1.2; PT Patient Result 13.1 SECS (10.5-12.0)
[2021-06-01 06:29] LABS: Folate > 24.00 NG/ML (5.38-24.0); Vitamin B12 527 PG/ML (211-911)
[2021-06-01 06:30] LABS: Hypochromasia 1+; Polychromasia Slight
[2021-06-01 06:31] LABS: Anisocytosis 1+; Macrocytosis 1+; Ovalocytes Slight; Platelet Estimate Decreased; Target Cells Slight
[2021-06-01 06:36] LABS: Calcium 10.1 MG/DL (8.5-10.1); Free T4 (Free Thyroxine) 0.78 NG/DL (0.76-1.46); Osmolality,Calculated 290.8 MOS/KG (273-304); Potassium 5.9 MMOL/L (3.5-5.1); Thyroid Stimulating Hormone 5.16 uIU/ml (0.358-3.74)
[2021-06-01] MEDS: ALBUTEROL/IPRATROPIUM 3 ML NEB RESP TX SCH ×3 (07:56→19:00)
[2021-06-01] MEDS ORDERED: SODIUM CHLORIDE 0.9% 250 ML IV ONE (09:25)
[2021-06-01] MEDS: MIDODRINE 5 MG TABLET PO SCH ×3 (09:33→20:21)
[2021-06-01] MEDS: SEVELAMER CARBONATE 800 MG TABLET PO SCH ×3 (09:33→17:56)
[2021-06-01] MEDS: AMIODARONE 200 MG TABLET PO SCH ×2 (09:34→20:21)
[2021-06-01] MEDS: CETIRIZINE 10 MG TABLET PO SCH (09:34)
[2021-06-01] MEDS: ASCORBIC ACID 500 MG TABLET PO SCH ×2 (09:34→20:21)
[2021-06-01] MEDS: LACTULOSE 20 GM/30 ML UDCUP PO SCH ×2 (09:34→20:21)
[2021-06-01] MEDS: MONTELUKAST 10 MG TABLET PO SCH (09:34)
[2021-06-01] MEDS: ZINC OXIDE 16% PASTE 57 GM TUBE TOP SCH ×2 (09:34→20:21)
[2021-06-01] MEDS: FOLIC ACID 1 MG TABLET PO SCH ×2 (09:34→20:21)
[2021-06-01] MEDS: MORPHINE 2 MG/1 ML SYRINGE IV PRN (23:00)
[2021-06-02] MEDS: HYDROCORTISONE 100 MG VIAL IV SCH ×3 (04:49→22:41)
[2021-06-02 05:56] LABS: Calcium 9.8 MG/DL (8.5-10.1); Osmolality,Calculated 289.3 MOS/KG (273-304); Potassium 4.7 MMOL/L (3.5-5.1)
[2021-06-02 07:32] LABS: Eosinophils % 0.2 % (0.00-10.9); Hematocrit 28.1 VOL% (35.7-47.0); Hemoglobin 8.9 GM/DL (12.0-16.0); Immature Granulocytes % 0.7 %; Immature Granulocytes Absolute 0.04 #; Lymphocytes # 0.4 10*3/uL (1.4-4.0); Lymphocytes % 7.9 % (21.3-54.2); Mean Corpuscular HGB Conc 31.7 GM/DL (32-36); Mean Corpuscular Volume 98.3 FL (87-102); Mean Platelet Volume 8.2 FL (9.6-12.0); Monocytes % 6.7 % (1.7-12.7); NRBC # 0.02 10*3/uL; Neutrophils % 84.5 % (38.7-73.9); Red Blood Count 2.86 MC/CUMM (3.8-5.5); Red Cell Distribution Width 19.2 % (9.3-17.3); White Blood Count 5.5 T/CUMM (4-12)
[2021-06-02] MEDS: ALBUTEROL/IPRATROPIUM 3 ML NEB RESP TX SCH ×3 (08:08→19:25)
[2021-06-02 08:09] LABS: Platelet Count 3 T/CUMM (130-400)
[2021-06-02 08:33] LABS: Band Neutrophils 4 % (0-10); Lymphocytes 6 % (20-55); Segmented Neutrophils 87 % (50-85); Total Cells Counted 100
[2021-06-02 08:34] LABS: Anisocytosis 3+; Macrocytosis 1+; Ovalocytes Few; Platelet Estimate Decreased; Tear Drop Cells Few
[2021-06-02] MEDS: LACTULOSE 20 GM/30 ML UDCUP PO SCH ×3 (08:35→23:03)
[2021-06-02] MEDS: AMIODARONE 200 MG TABLET PO SCH ×2 (08:36→22:41)
[2021-06-02] MEDS: FOLIC ACID 1 MG TABLET PO SCH ×2 (08:36→22:41)
[2021-06-02] MEDS: MIDODRINE 5 MG TABLET PO SCH ×3 (08:36→22:41)
[2021-06-02] MEDS: ASCORBIC ACID 500 MG TABLET PO SCH ×2 (08:36→22:42)
[2021-06-02] MEDS: MONTELUKAST 10 MG TABLET PO SCH (08:36)
[2021-06-02] MEDS: SEVELAMER CARBONATE 800 MG TABLET PO SCH ×3 (08:37→18:04)
[2021-06-02] MEDS: ZINC OXIDE 16% PASTE 57 GM TUBE TOP SCH ×2 (08:37→23:03)
[2021-06-02 11:53] LABS: Hematocrit 27.2 VOL% (35.7-47.0); Hemoglobin 8.4 GM/DL (12.0-16.0); Immature Granulocytes % 0.8 %; Immature Granulocytes Absolute 0.04 #; Lymphocytes # 0.4 10*3/uL (1.4-4.0); Lymphocytes % 7.7 % (21.3-54.2); Mean Corpuscular HGB Conc 30.9 GM/DL (32-36); Mean Corpuscular Volume 99.3 FL (87-102); Mean Platelet Volume 12.4 FL (9.6-12.0); Monocytes % 4.9 % (1.7-12.7); Neutrophils % 86.6 % (38.7-73.9); Red Blood Count 2.74 MC/CUMM (3.8-5.5); White Blood Count 4.9 T/CUMM (4-12)
[2021-06-02 11:56] LABS: Platelet Count 33 T/CUMM (130-400)
[2021-06-02 12:24] LABS: Polychromasia Slight
[2021-06-02 12:26] LABS: Platelet Estimate Decreased
[2021-06-03] MEDS: HYDROCORTISONE 100 MG VIAL IV SCH ×3 (04:43→23:08)
[2021-06-03 05:13] LABS: Eosinophils % 0.2 % (0.00-10.9); Hematocrit 27.6 VOL% (35.7-47.0); Hemoglobin 8.5 GM/DL (12.0-16.0); Immature Granulocytes % 1.4 %; Immature Granulocytes Absolute 0.07 #; Lymphocytes # 0.4 10*3/uL (1.4-4.0); Lymphocytes % 7.3 % (21.3-54.2); Mean Corpuscular HGB Conc 30.8 GM/DL (32-36); Mean Corpuscular Volume 99.3 FL (87-102); Mean Platelet Volume 11.3 FL (9.6-12.0); Monocytes % 7.3 % (1.7-12.7); Neutrophils % 83.8 % (38.7-73.9); Red Blood Count 2.78 MC/CUMM (3.8-5.5); Red Cell Distribution Width 18.8 % (9.3-17.3); White Blood Count 5.2 T/CUMM (4-12)
[2021-06-03 05:17] LABS: Platelet Count 34 T/CUMM (130-400)
[2021-06-03 05:35] LABS: Hypochromasia Slight; Microcytosis Slight; Platelet Estimate Decreased
[2021-06-03 05:35] LABS: Calcium 10.3 MG/DL (8.5-10.1); Osmolality,Calculated 291.5 MOS/KG (273-304); Potassium 4.5 MMOL/L (3.5-5.1)
[2021-06-03] MEDS: FOLIC ACID 1 MG TABLET PO SCH ×2 (08:31→21:01)
[2021-06-03] MEDS: MIDODRINE 5 MG TABLET PO SCH ×3 (08:31→21:01)
[2021-06-03] MEDS: ASCORBIC ACID 500 MG TABLET PO SCH ×2 (08:31→21:01)
[2021-06-03] MEDS: SEVELAMER CARBONATE 800 MG TABLET PO SCH ×3 (08:31→17:24)
[2021-06-03] MEDS: LACTULOSE 20 GM/30 ML UDCUP PO SCH ×2 (08:32→21:02)
[2021-06-03] MEDS: MONTELUKAST 10 MG TABLET PO SCH (08:32)
[2021-06-03] MEDS: ZINC OXIDE 16% PASTE 57 GM TUBE TOP SCH ×2 (08:32→21:02)
[2021-06-03] MEDS: AMIODARONE 200 MG TABLET PO SCH ×2 (08:32→21:01)
[2021-06-03] MEDS: ALBUTEROL/IPRATROPIUM 3 ML NEB RESP TX SCH ×3 (09:51→20:00)
[2021-06-03] MEDS: SIMETHICONE CHEW 125 MG TABLET PO PRN ×2 (11:18→21:37)
[2021-06-04] MEDS: ALBUTEROL/IPRATROPIUM 3 ML NEB RESP TX SCH ×3 (07:26→19:50)
[2021-06-04 07:30] LABS: Eosinophils % 1.2 % (0.00-10.9); Hematocrit 25.6 VOL% (35.7-47.0); Hemoglobin 7.9 GM/DL (12.0-16.0); Immature Granulocytes % 0.6 %; Immature Granulocytes Absolute 0.02 #; Lymphocytes # 0.5 10*3/uL (1.4-4.0); Lymphocytes % 13.4 % (21.3-54.2); Mean Corpuscular HGB Conc 30.9 GM/DL (32-36); Mean Corpuscular Volume 99.6 FL (87-102); Mean Platelet Volume 12.5 FL (9.6-12.0); Neutrophils % 75.8 % (38.7-73.9); Red Blood Count 2.57 MC/CUMM (3.8-5.5); White Blood Count 3.4 T/CUMM (4-12)
[2021-06-04 07:38] LABS: Platelet Count 28 T/CUMM (130-400)
[2021-06-04 08:00] LABS: Calcium 10.1 MG/DL (8.5-10.1); Osmolality,Calculated 286.4 MOS/KG (273-304); Potassium 4.9 MMOL/L (3.5-5.1)
[2021-06-04] MEDS: MONTELUKAST 10 MG TABLET PO SCH (09:00)
[2021-06-04] MEDS: FOLIC ACID 1 MG TABLET PO SCH ×2 (09:00→20:13)
[2021-06-04] MEDS: AMIODARONE 200 MG TABLET PO SCH ×2 (09:00→20:14)
[2021-06-04] MEDS: ASCORBIC ACID 500 MG TABLET PO SCH ×2 (09:00→20:14)
[2021-06-04] MEDS: MIDODRINE 5 MG TABLET PO SCH ×3 (09:00→20:14)
[2021-06-04] MEDS: SEVELAMER CARBONATE 800 MG TABLET PO SCH ×3 (09:00→16:56)
[2021-06-04] MEDS: HYDROCORTISONE 100 MG VIAL IV SCH ×3 (09:06→23:33)
[2021-06-04] MEDS: ZINC OXIDE 16% PASTE 57 GM TUBE TOP SCH ×2 (09:06→20:18)
[2021-06-04] MEDS: LACTULOSE 20 GM/30 ML UDCUP PO SCH ×2 (09:07→20:14)
[2021-06-04 09:45] LABS: Hypochromasia Slight; Ovalocytes 1+; Platelet Estimate Decreased; Polychromasia Slight
[2021-06-04] MEDS ORDERED: IPRATROPIUM 500 MCG/2.5 ML NEB RESP TX ONE (19:49)
[2021-06-04] MEDS ORDERED: ALBUTEROL 2.5 MG/3 ML NEB RESP TX ONE (19:49)
[2021-06-05] MEDS: ALBUTEROL/IPRATROPIUM 3 ML NEB RESP TX SCH ×3 (07:25→20:47)
[2021-06-05] MEDS: FOLIC ACID 1 MG TABLET PO SCH ×2 (08:08→20:30)
[2021-06-05] MEDS: ASCORBIC ACID 500 MG TABLET PO SCH ×2 (08:08→20:30)
[2021-06-05] MEDS: HYDROCORTISONE 100 MG VIAL IV SCH ×2 (08:08→16:12)
[2021-06-05] MEDS: MIDODRINE 5 MG TABLET PO SCH ×3 (08:08→20:30)
[2021-06-05] MEDS: ZINC OXIDE 16% PASTE 57 GM TUBE TOP SCH ×2 (08:08→20:31)
[2021-06-05] MEDS: SEVELAMER CARBONATE 800 MG TABLET PO SCH ×3 (08:08→16:10)
[2021-06-05] MEDS: AMIODARONE 200 MG TABLET PO SCH ×2 (08:08→20:30)
[2021-06-05] MEDS: MONTELUKAST 10 MG TABLET PO SCH (08:08)
[2021-06-05] MEDS: MORPHINE 2 MG/1 ML SYRINGE IV PRN ×2 (08:15→16:17)
[2021-06-05 14:06] LABS: Osmolality,Calculated 294.3 MOS/KG (273-304)
[2021-06-05 14:30] LABS: Hematocrit 27.7 VOL% (35.7-47.0); Hemoglobin 8.4 GM/DL (12.0-16.0); Mean Corpuscular Volume 100.4 FL (87-102); Red Blood Count 2.76 MC/CUMM (3.8-5.5); White Blood Count 3.6 T/CUMM (4-12)
[2021-06-05 14:31] LABS: Mean Corpuscular HGB Conc 30.3 GM/DL (32-36); Platelet Count 36 T/CUMM (130-400); Red Cell Distribution Width 19.2 % (9.3-17.3)
[2021-06-05] MEDS: LACTULOSE 20 GM/30 ML UDCUP PO SCH ×2 (15:29→20:31)
[2021-06-05 19:16] LABS: Ovalocytes 1+
[2021-06-05 19:17] LABS: Burr Cells Few; Platelet Estimate Decreased; Polychromasia Slight
[2021-06-05] MEDS: DOXYCYCLINE HYCLATE 100 MG CAPSULE PO SCH (20:30)
[2021-06-05] MEDS: MUPIROCIN 2% OINT 22 GM TUBE TOP SCH (22:14)
[2021-06-06] MEDS: HYDROCORTISONE 100 MG VIAL IV SCH ×3 (00:12→16:11)
[2021-06-06] MEDS: MORPHINE 2 MG/1 ML SYRINGE IV PRN (02:08)
[2021-06-06] MEDS: ALBUTEROL/IPRATROPIUM 3 ML NEB RESP TX SCH ×3 (08:22→19:50)
[2021-06-06] MEDS: SEVELAMER CARBONATE 800 MG TABLET PO SCH ×3 (11:18→16:11)
[2021-06-06] MEDS: ZINC OXIDE 16% PASTE 57 GM TUBE TOP SCH ×2 (11:24→23:54)
[2021-06-06] MEDS: MUPIROCIN 2% OINT 22 GM TUBE TOP SCH ×2 (11:24→23:54)
[2021-06-06] MEDS: DOXYCYCLINE HYCLATE 100 MG CAPSULE PO SCH ×2 (11:25→20:58)
[2021-06-06] MEDS: LACTULOSE 20 GM/30 ML UDCUP PO SCH ×2 (11:25→23:54)
[2021-06-06] MEDS: MONTELUKAST 10 MG TABLET PO SCH (11:25)
[2021-06-06] MEDS: FOLIC ACID 1 MG TABLET PO SCH ×2 (11:25→20:58)
[2021-06-06] MEDS: MIDODRINE 5 MG TABLET PO SCH ×3 (11:25→20:58)
[2021-06-06] MEDS: AMIODARONE 200 MG TABLET PO SCH ×2 (11:26→20:58)
[2021-06-06] MEDS: ASCORBIC ACID 500 MG TABLET PO SCH ×2 (11:26→20:58)
[2021-06-06] MEDS ORDERED: TUBERCULIN SKIN TEST 0.1 ML SYRINGE INTRADERM ONE (13:50)
[2021-06-07] MEDS: HYDROCORTISONE 100 MG VIAL IV SCH ×4 (00:20→23:32)
[2021-06-07] MEDS: ALBUTEROL/IPRATROPIUM 3 ML NEB RESP TX SCH ×3 (07:15→19:52)
[2021-06-07] MEDS: MONTELUKAST 10 MG TABLET PO SCH (09:48)
[2021-06-07] MEDS: DOXYCYCLINE HYCLATE 100 MG CAPSULE PO SCH ×2 (09:48→21:37)
[2021-06-07] MEDS: MIDODRINE 5 MG TABLET PO SCH ×3 (09:48→21:37)
[2021-06-07] MEDS: FOLIC ACID 1 MG TABLET PO SCH ×2 (09:48→21:37)
[2021-06-07] MEDS: AMIODARONE 200 MG TABLET PO SCH ×2 (09:48→21:37)
[2021-06-07] MEDS: ASCORBIC ACID 500 MG TABLET PO SCH ×2 (09:48→21:37)
[2021-06-07] MEDS: SEVELAMER CARBONATE 800 MG TABLET PO SCH ×3 (09:48→17:12)
[2021-06-07] MEDS: LACTULOSE 20 GM/30 ML UDCUP PO SCH ×2 (09:49→21:38)
[2021-06-07] MEDS: MUPIROCIN 2% OINT 22 GM TUBE TOP SCH ×2 (09:53→21:38)
[2021-06-07] MEDS: ZINC OXIDE 16% PASTE 57 GM TUBE TOP SCH ×2 (09:53→21:38)
[2021-06-07 11:35] LABS: Calcium 10.4 MG/DL (8.5-10.1); Osmolality,Calculated 291.4 MOS/KG (273-304); Potassium 4.4 MMOL/L (3.5-5.1)
[2021-06-07 11:37] LABS: Eosinophils % 0.4 % (0.00-10.9); Hematocrit 27.3 VOL% (35.7-47.0); Hemoglobin 8.3 GM/DL (12.0-16.0); Immature Granulocytes % 1.5 %; Immature Granulocytes Absolute 0.07 #; Lymphocytes # 0.5 10*3/uL (1.4-4.0); Lymphocytes % 11.6 % (21.3-54.2); Mean Corpuscular HGB Conc 30.4 GM/DL (32-36); Mean Corpuscular Volume 101.1 FL (87-102); Mean Platelet Volume 10.9 FL (9.6-12.0); Monocytes % 12.9 % (1.7-12.7); Neutrophils % 73.6 % (38.7-73.9); Platelet Count 43 T/CUMM (130-400); Red Cell Distribution Width 19.3 % (9.3-17.3); White Blood Count 4.6 T/CUMM (4-12)
[2021-06-07 12:58] LABS: Ovalocytes 1+
[2021-06-07 12:59] LABS: Elliptocytes Few; Platelet Estimate Decreased; Polychromasia Slight; Tear Drop Cells Slight
[2021-06-08] MEDS: ALBUTEROL/IPRATROPIUM 3 ML NEB RESP TX SCH ×4 (07:21→23:41)
[2021-06-08] MEDS: SEVELAMER CARBONATE 800 MG TABLET PO SCH ×3 (08:40→17:52)
[2021-06-08] MEDS: ZINC OXIDE 16% PASTE 57 GM TUBE TOP SCH ×2 (08:40→22:00)
[2021-06-08] MEDS: MUPIROCIN 2% OINT 22 GM TUBE TOP SCH ×2 (08:40→22:03)
[2021-06-08] MEDS: DOXYCYCLINE HYCLATE 100 MG CAPSULE PO SCH ×2 (08:41→22:00)
[2021-06-08] MEDS: FOLIC ACID 1 MG TABLET PO SCH ×2 (08:41→21:59)
[2021-06-08] MEDS: AMIODARONE 200 MG TABLET PO SCH ×2 (08:41→21:59)
[2021-06-08] MEDS: MONTELUKAST 10 MG TABLET PO SCH (08:41)
[2021-06-08] MEDS: MIDODRINE 5 MG TABLET PO SCH ×3 (08:41→21:59)
[2021-06-08] MEDS: ASCORBIC ACID 500 MG TABLET PO SCH ×2 (08:42→21:59)
[2021-06-08 10:38] LABS: Hematocrit 26.2 VOL% (35.7-47.0); Immature Granulocytes % 2.7 %; Immature Granulocytes Absolute 0.16 #; Lymphocytes # 0.7 10*3/uL (1.4-4.0); Lymphocytes % 11.6 % (21.3-54.2); Mean Corpuscular HGB Conc 30.5 GM/DL (32-36); Mean Corpuscular Volume 101.2 FL (87-102); Mean Platelet Volume 11.6 FL (9.6-12.0); Monocytes % 11.3 % (1.7-12.7); Neutrophils % 74.4 % (38.7-73.9); Platelet Count 53 T/CUMM (130-400); Red Blood Count 2.59 MC/CUMM (3.8-5.5); Red Cell Distribution Width 19.4 % (9.3-17.3)
[2021-06-08 10:50] LABS: Calcium 9.9 MG/DL (8.5-10.1); Osmolality,Calculated 297.1 MOS/KG (273-304); Potassium 5.3 MMOL/L (3.5-5.1)
[2021-06-08 11:03] LABS: Hypochromasia 1+; Microcytosis 1+; Platelet Estimate Decreased
[2021-06-08] MEDS ORDERED: ALBUMIN 25% 25 GM/100 ML VIAL IV ONE ×2 (12:00→12:30)
[2021-06-08] MEDS ORDERED: ALBUMIN 25% 50 GM/200 ML VIAL IV ONE (12:00)
[2021-06-08] MEDS ORDERED: SODIUM POLYSTYRENE SULFATE 15 GM/60 ML BOTTLE PO ONE (14:00)
[2021-06-08] MEDS: HYDROCORTISONE 100 MG VIAL IV SCH ×2 (14:51→15:09)
[2021-06-08] MEDS: LACTULOSE 20 GM/30 ML UDCUP PO SCH ×3 (14:52→22:57)
[2021-06-09] MEDS: HYDROCORTISONE 100 MG VIAL IV SCH ×2 (02:15→09:28)
[2021-06-09 07:28] LABS: Calcium 10.3 MG/DL (8.5-10.1); Osmolality,Calculated 288.3 MOS/KG (273-304); Potassium 4.3 MMOL/L (3.5-5.1)
[2021-06-09] MEDS: ALBUTEROL/IPRATROPIUM 3 ML NEB RESP TX SCH ×2 (07:46→12:41)
[2021-06-09] MEDS: MONTELUKAST 10 MG TABLET PO SCH (09:27)
[2021-06-09] MEDS: AMIODARONE 200 MG TABLET PO SCH (09:27)
[2021-06-09] MEDS: MIDODRINE 5 MG TABLET PO SCH (09:27)
[2021-06-09] MEDS: ASCORBIC ACID 500 MG TABLET PO SCH (09:27)
[2021-06-09] MEDS: DOXYCYCLINE HYCLATE 100 MG CAPSULE PO SCH (09:27)
[2021-06-09] MEDS: LACTULOSE 20 GM/30 ML UDCUP PO SCH (09:27)
[2021-06-09] MEDS: SEVELAMER CARBONATE 800 MG TABLET PO SCH ×2 (09:28→11:55)
[2021-06-09] MEDS: FOLIC ACID 1 MG TABLET PO SCH (09:28)
[2021-06-09] MEDS: MUPIROCIN 2% OINT 22 GM TUBE TOP SCH (09:29)
[2021-06-09] MEDS: ZINC OXIDE 16% PASTE 57 GM TUBE TOP SCH (09:30)
[2021-06-09] MEDS: SIMETHICONE CHEW 125 MG TABLET PO PRN (10:51)
[2021-06-09 12:20] VITALS: BP 93/56
== END 2021-06-09 12:50 | DRG 206 ==
LOC: EDUNIT# → EDBD → N.ED 16:16 → N.EDINP 17:43 → SUATTDRO 17:43 → N.CC 18:10 → N.3E 22:54 → N.CC 05-31 00:36 → N.TELES 06-02 20:52
PROVIDERS: ADMIT Internal Medicine; ATTEND Internal Medicine